=== PATIENT | female | born 1970 | race Caucasian/White ===

== ENCOUNTER 2016-11-16 17:32 | Emergency (ER) | payer MEDICARE, OTHER ==
[~2016-11-16] VITALS: Ht 170.2 cm; Wt 59.1 kg
[~2016-11-16 17:32] MED LIST: AMITRIPTYLINE H25 M1 PO; CAMPRAL333 M1 PO; CLARITIN 1010 MG/TAB PO; EFFEXOR XR75 MG/CAP PO; INDERAL 10MG10 MG PO; MELATONIN5 M1 PO; MOBIC 7.5MG7.5 MG PO; NEURONTIN300 MG/CAP PO; SEROQUEL300 MG PO
[2016-11-16 17:34] VITALS: TEMP 97.8
[2016-11-16 18:13] LABS: BASO % 0.5 % (0.0-2.0); EOS # 0.1 (0.0-0.7); EOS % 2.8 % (0-4.0); GRAN # 1.9 (1.4-6.5); GRAN % 43.2 % (42.2-75.2); LYMPH # 1.7 (1.2-3.4); LYMPH % 40.2 % (20.0-51.0); MEAN CELL VOLUME 93 fl (80.0-100.0); MEAN CORPUSCULAR HGB CONC 32 g/dl (33.0-37.0); MEAN PLATELET VOLUME 9.6 fl (7.4-10.4); MONO # 0.6 (0.1-0.6); MONO % 13.1 % (1.7-9.3); PLATELET COUNT 256 K/mm3 (130-400); RED BLOOD COUNT 3.78 M/mm3 (4.10-5.30); WHITE BLOOD COUNT 4.3 K/mm3 (4.8-10.8)
[2016-11-16 18:15] LABS: HEMOGLOBIN 11.3 g/dl (12.5-16.0); MEAN CORPUSCULAR HEMOGLOBIN 30 pg (27.0-31.0)
[2016-11-16 18:25] LABS: ALANINE AMINOTRANSFERASE 26 U/L (9-52); ALBUMIN 3.9 gm/dL (3.5-5.0); ALKALINE PHOSPHATASE 81 U/L (50-136); ANION GAP 9 mmol/L (7-16); BILIRUBIN,TOTAL 0.3 mg/dL (0.0-1.0); BLOOD UREA NITROGEN 21 mg/dL (7-17); CALCIUM 8.9 mg/dL (8.4-10.2); CARBON DIOXIDE 22 mmol/L (22-30); CHLORIDE 109 mmol/L (98-107); CREATININE, serum 0.83 mg/dL (0.52-1.25); GLUCOSE 75 mg/dL (74-106); LIPASE 217 U/L (23-300); POTASSIUM 3.9 mmol/L (3.4-5.0); SODIUM 140 mmol/L (137-145); TOTAL PROTEIN 6.6 gm/dL (6.4-8.2)
[2016-11-16 18:29] LABS: C-REACTIVE PROTEIN < 0.5 mg/dL (0.0-0.9)
[2016-11-16 18:37] LABS: ERYTHROCYTE SEDIMENTATION RATE 8 mm/hr (0-20); TROPONIN-I < 0.012 ng/mL (0.000-0.034)
[2016-11-16 19:07] LABS: PH 6 (5-8); SQUAMOUS EPITHELIAL 0-2 /hpf; URINE APPEARANCE Hazy; URINE BACTERIA Occasional /hpf; URINE BILIRUBIN Negative (NEGATIVE); URINE BLOOD Negative (NEGATIVE); URINE COLOR Yellow; URINE GLUCOSE Negative (NEGATIVE); URINE KETONE Negative (NEGATIVE); URINE RBC 0-2 /hpf; URINE UROBILINOGEN Negative (NEGATIVE)
[2016-11-16 19:08] LABS: URINE WBC 20-50 /hpf
[2016-11-16] MEDS ORDERED: ULTRAM 50MG TAB50 MG PO (19:09)
[2016-11-16] MEDS ORDERED: ZOFRAN8 MG PO (19:09)
[2016-11-16] MEDS ORDERED: LEVAQUIN 750MG750 M1 PO (19:11)
[2016-11-16 19:26] VITALS: BP 121/90; PULSE 89
== END 2016-11-16 19:35 | disposition home or self-care (01) ==
LOC: COL.ER 17:32
PROVIDERS: Emergency Medicine
DX: N12 Tubulo-interstitial nephritis, not specified as acute or chronic (principal); R63.0 Anorexia; R11.0 Nausea; R19.7 Diarrhea, unspecified
CPT/HCPCS: J1170; J2405; J7030; Q9967